=== PATIENT | female | born 1955 | race African-American/Black ===

== ENCOUNTER 2017-04-28 11:38 | Emergency (ER) | payer OTHER ==
[2017-04-28 12:12] VITALS: BMI 23.3
--- NOTE | 2017-04-28 12:16 | PDOC ---
Attending Attestation - Resident Resident Name: KeshawnammonBerto - ED Attending Attestation I have performed the following: I have examined & evaluated the patient, The case was reviewed & discussed with the resident, I agree w/resident's findings & plan, Exceptions are as noted - HPI HPI: 04/28/17 12:54 61yo F hx HIV (CD4 1000), IDDM, HTN p/w suprapubic pain since this morning a/w 3 episodes of NBNB emesis. Pain is suprapubic. +dysuria x2 weeks. Denies fevers, chills, flank pain, CP, SOB, dizziness, focal weakness, LE edema. Last BM yesterday was normal, non bloody Pt does not know her medications. - Physicial Exam PE: 04/28/17 12:57 GENERAL: Awake, alert, and fully oriented, in no acute distress HEAD: No signs of trauma EYES: PERRLA, EOMI, sclera anicteric, conjunctiva clear ENT: Auricles normal inspection, hearing grossly normal, nares patent, oropharynx clear without exudates. dry MM NECK: Normal ROM, supple, no lymphadenopathy, JVD, or masses LUNGS: Breath sounds equal, clear to auscultation bilaterally. No wheezes, and no crackles HEART: Regular rate and rhythm, normal S1 and S2, no murmurs, rubs or gallops ABDOMEN: Soft, nontender, normoactive bowel sounds. No guarding, no rebound. No masses +suprapubic ttp EXTREMITIES: Normal range of motion, no edema. No clubbing or cyanosis. No cords, erythema, or tenderness NEUROLOGICAL: Normal speech, cranial nerves intact, negative pronator drift, 5/ 5 strength in all 4 extremities, normal sensation to light touch in all 4 extremities, normal cerebellar exam, normal gait, normal reflexes and tone SKIN: Warm, Dry, normal turgor, no rashes or lesions noted. 04/28/17 15:53 - Medical Decision Making 04/28/17 13:01 61yo F female history of HIV, HTN presents with suprapubic pain associated with dysuria. Exam with suprapubic tenderness to palpation but no CVA tenderness. Likely UTI but if UA is negative will consider other intra-abdominal pathology such as colitis versus enteritis -labs -UA -IVF -reassess 04/28/17 15:47 Urinalysis is weakly positive. Patient continues to complain of dysuria. Repeat abdominal exam with some mild suprapubic tenderness to palpation. No CVA tenderness. History and physical consistent with likely UTI - will treat with bactrim .I discussed the physical exam findings, ancillary test results and final diagnoses with the patient. I answered all of the patient's questions. The patient was satisfied with the care received and felt comfortable with the discharge plan and treatment plan. The patient will call their primary care physician within 24 hours to arrange follow-up and will return to the Emergency Department with any new, persistent or worsening symptoms.
[2017-04-28] MEDS ORDERED: SODIUM CHLORIDE 500 ML IV STA (12:26)
[2017-04-28] MEDS ORDERED: ONDANSETRON 4 MG/2 ML VIAL IVPB ONE (12:26)
--- NOTE | 2017-04-28 12:45 | PDOC ---
History of Present Illness - General Chief Complaint: Pain Stated Complaint: NAUSEA/VOMITING Time Seen by Provider: 04/28/17 12:10 History Source: Patient Exam Limitations: No Limitations - History of Present Illness Initial Comments: 04/28/17 12:43 Patient is 61F with history of HIV (CD4 reported at 9 but unsure, unsure if on bactrim), IDDM and HTN here today complaining of lower abdominal pain. She states the pain started suddenly at 9am this morning with 3 episodes of non- bloody emesis. She had a bowel movement today. She endorses a "sharp" feeling with urination for the past 2 months, but denies fevers, chills and CVA tenderness. She denies any blood in her stool or recent bouts of diarrhea. She denies chest pain, and shortness of breath. Patient does not know what medications she takes. PCP: Dr April Burroughs 04/28/17 13:13 Patient's pharmacy contacted for medication list. Currently on Triumec, lipitor , nifedipine, triumec, atenolol, losartan and insulin. Not on bactrim. Reported that her HIV medication prescriber is Dr April Burroughs. PCP office contacted for CD4 count, CD4 is 1090. Past History - Past Medical History Home Medications: Ambulatory Orders Abacavir/Dolutegravir/Lamivudi [Triumeq Tablet] 1 tab PO DAILY 04/28/17 Atenolol [Tenormin -] 100 mg PO DAILY 04/28/17 Atorvastatin Ca [Lipitor] 20 mg PO HS 04/28/17 Insulin Lispro [Humalog] 6 units SQ DAILY 04/28/17 Insulin Lispro [Humalog] 30 units SQ HS 04/28/17 Losartan Potassium 100 mg PO DAILY 04/28/17 Nifedipine [Procardia Xl] 30 mg PO DAILY 04/28/17 Sulfamethoxazole/Trimethoprim [Bactrim Ds -] 1 tab PO BID #5 tablet 04/28/17 Diabetes: Yes (IDDM) HTN: Yes Hypercholesterolemia: Yes HIV: Yes - Psycho/Social/Smoking Cessation Hx Suicidal Ideation: No Smoking History: Never smoked Have you smoked in the past 12 months: No Number of Cigarettes Smoked Daily: 0 Cigars Per Day: 0 Information on smoking cessation initiated: No Hx Alcohol Use: No Drug/Substance Use Hx: No Substance Use Type: None Review of Systems - Review of Systems Comments:: 04/28/17 13:23 GENERAL/CONSTITUTIONAL: No fever or chills. No weakness. HEAD, EYES, EARS, NOSE AND THROAT: No change in vision. No ear pain or discharge. No sore throat. CARDIOVASCULAR: No chest pain or shortness of breath RESPIRATORY: No cough, wheezing GASTROINTESTINAL: Positive for nausea and vomiting. Negative for diarrhea or constipation. GENITOURINARY: Positive for dysuria SKIN: No rash NEUROLOGIC: No headache, loss of consciousness, or change in strength/sensation. ALLERGIC/IMMUNOLOGIC: No hives or skin allergy. *Physical Exam - Vital Signs Last Vital Signs Temp Pulse Resp BP Pulse Ox 97.7 F 75 18 139/91 100 04/28/17 12:12 04/28/17 12:12 04/28/17 12:12 04/28/17 12:12 04/28/17 12:17 - Physical Exam Comments: 04/28/17 13:26 GENERAL: Awake, alert, and fully oriented, in mild distress HEAD: No signs of trauma, normocephalic, atraumatic EYES: PERRLA, EOMI, sclera anicteric, conjunctiva clear ENT: Auricles normal inspection, hearing grossly normal, nares patent, oropharynx clear without exudates. Dry Mucosa NECK: Normal ROM, supple, or masses LUNGS: No distress, speaks full sentences, clear to auscultation bilaterally HEART: Regular rate and rhythm, normal S1 and S2, late systolic click murmur 2/6 , peripheral pulses normal and equal bilaterally. ABDOMEN: Soft, suprapubic tenderness, normoactive bowel sounds. No guarding, no rebound. No masses EXTREMITIES: Normal inspection, Normal range of motion, no edema. No clubbing or cyanosis. NEUROLOGICAL: Cranial nerves II through XII grossly intact. Normal speech, no focal sensorimotor deficits SKIN: Warm, Dry, normal turgor, no rashes or lesions noted. ED Treatment Course - LABORATORY CBC & Chemistry Diagram: 04/28/17 12:15 04/28/17 13:05 - ADDITIONAL ORDERS Additional order review: Laboratory Results 04/28/17 11:55 POC Glucometer [id number] 04/28/17 11:55 POC Glucometer [id number] - RADIOLOGY Radiology Studies Ordered: Category Date Time Status CHEST X-RAY PORTABLE* [RAD] Stat Radiology 04/28/17 12:28 Ordered Medical Decision Making - Medical Decision Making 04/28/17 13:29 61F with history HIV with normal CD4 count, IDDM, and HTN here today complaining of abdominal pain. Vital signs stable and normal. Differential diagnosis includes, but is not limited to: UTI, gastroparesis, viral infection, ACS. CBC, CMP, UA, Troponin, and CXR ordered. EKG shows normal sinus rhythm, normal axis, no ST elevation, no T wave abnormalities. 04/28/17 13:55 CXR shows borderline heart enlargement and no signs of acute cardiopulmonary disease 04/28/17 15:40 UA shows possible UTI, with symptoms will treat. Abdominal pain and nausea have resolved. Patient passed PO challenge and currently pain free. Will give 1 dose of ds bactrim and send outpatient prescription. Patient given return precautions and demonstrated understanding. *DC/Admit/Observation/Transfer Diagnosis at time of Disposition: Urinary tract infection Qualifiers: Urinary tract infection type: acute cystitis Hematuria presence: without hematuria Qualified Code(s): N30.00 - Acute cystitis without hematuria - Discharge Dispostion Disposition: HOME Condition at time of disposition: Good Admit: No - Prescriptions Prescriptions: Sulfamethoxazole/Trimethoprim [Bactrim Ds -] 1 tab PO BID #5 tablet - Patient Instructions Printed Discharge Instructions: DI for Urinary Tract Infection (UTI) - Attestations Physician Attestion: 04/28/17 15:43 I, Dr. Berto Gottlieb, attest that this document has been prepared under my direction and personally reviewed by me in its entirety. I further attest, that it accurately reflects all work, treatment, procedures and medical decision -making performed by me.
[2017-04-28 13:17] LABS: BASOPHIL 0.3 % (0-2.0); EOSINOPHIL 0.2 % (0-4.5); MCH 33.5 pg (25.7-33.7); MCHC 34.7 g/dl (32.0-36.0); MEAN CELL VOLUME 96.8 fl (80-96); MEAN PLT VOLUME 7.2 fl (7.5-11.1); NEUTROPHILS 65.9 % (42.8-82.8); PLATELET COUNT 269 K/MM3 (134-434); RDW 13.5 % (11.6-15.6); WHITE BLOOD COUNT 7.8 K/mm3 (4.0-10.0)
[2017-04-28 13:21] LABS: URINE APPEARANCE SLCLOUDY; URINE BILIRUBIN NEGATIVE (NEGATIVE); URINE BLOOD NEGATIVE (NEGATIVE); URINE COLOR DKYELLOW; URINE GLUCOSE (UA) 1+ (NEGATIVE); URINE KETONE NEGATIVE (NEGATIVE); URINE LEUK ESTERASE TRACE (NEGATIVE); URINE NITRITE NEGATIVE (NEGATIVE); URINE UROBILINOGEN NEGATIVE mg/dL (0.2-1.0)
[2017-04-28 13:38] LABS: URINE PROTEIN 3+ (NEGATIVE)
[2017-04-28 13:43] LABS: TROPONIN I < 0.02 ng/ml (0.00-0.05)
[2017-04-28 13:51] LABS: CPK 187 IU/L (26-192)
[2017-04-28 14:04] LABS: ALBUMIN 3.7 g/dl (3.4-5.0); ANION GAP 8 (8-16); BILIRUBIN,TOTAL 0.6 mg/dL (0.2-1.0); CALCIUM 8.7 mg/dL (8.5-10.1); CO2 26 mmol/L (21-32); CREATININE 1.5 mg/dL (0.55-1.02); GLUCOSE,RANDOM 180 mg/dL (74-106); SGPT/ALT 34 U/L (12-78); TOT PROT 8.6 g/dl (6.4-8.2)
[2017-04-28 14:07] LABS: ALK PHOS 94 U/L (45-117)
[2017-04-28 14:20] LABS: SGOT/AST 32 U/L (15-37)
[2017-04-28 14:40] LABS: URINE BACTERIA RARE /hpf (NONE SEEN); URINE RBC 2 /hpf (0-3); URINE WBC 6 /hpf (3-5)
[2017-04-28] MEDS ORDERED: SULFAMETHOXAZOLE/TRIMETHOPRIM 800MG/160MG D.S. TABLET PO ONE (15:37)
[2017-04-28 15:49] VITALS: BP 129/85; PULSE 70; TEMP 97.2
[2017-04-28] MEDS ORDERED: SULFAMETHOXAZOLE/TRIMETHOPRIM 800MG/160MG D.S. TABLET ONE (15:52)
--- NOTE | 2017-04-29 18:41 | EKG ---
Test Reason : Blood Pressure : / mmHG Vent. Rate : 073 BPM Atrial Rate : 073 BPM P-R Int : 172 ms QRS Dur : 084 ms QT Int : 392 ms P-R-T Axes : 057 023 063 degrees QTc Int : 431 ms NORMAL SINUS RHYTHM NORMAL ECG NO PREVIOUS ECGS AVAILABLE Confirmed by CHRIS SOLO MD ([id number]) on 04/29/2017 6:41:32 PM Referred By: Confirmed By:CHRIS SOLO MD
== END 2017-04-28 15:47 | disposition home or self-care (01) ==
LOC: JER 11:38
PROC: 3E0337Z Introduction of Electrolytic and Water Balance Substance into Peripheral Vein, Percutaneous Approach (ICD-10-PCS; principal; 2017-04-28)
PROC: 3E033GC Introduction of Other Therapeutic Substance into Peripheral Vein, Percutaneous Approach (ICD-10-PCS; 2017-04-28)
DX: N30.00 Acute cystitis without hematuria (principal); I10 Essential (primary) hypertension; E11.9 Type 2 diabetes mellitus without complications; Z79.4 Long term (current) use of insulin; E78.00 Pure hypercholesterolemia, unspecified; Z21 Asymptomatic human immunodeficiency virus [HIV] infection status
CPT/HCPCS: 36415; 71010-TC; 80053; 81003; 81015; 82553; 83605; 83690; 84484; 85025; 93005; 93010; 96361; 96374; 99283-25